=== PATIENT | female | born 1950 | race Caucasian/White ===

== ENCOUNTER → 2020-12-12 | Outpatient (CLI) | payer MEDICARE, OTHER | END | disposition home or self-care (01) | LOC: CFH 07:15 | PROVIDERS: ATTEND Obstetrics & Gynecology | DX: Z12.31 Encounter for screening mammogram for malignant neoplasm of breast (principal); Z12.2 Encounter for screening for malignant neoplasm of respiratory organs; E04.2 Nontoxic multinodular goiter; R91.1 Solitary pulmonary nodule; Z87.891 Personal history of nicotine dependence; Z98.82 Breast implant status | CPT/HCPCS: 71271; 76536; 77063; 77067 ==